=== PATIENT | female | born 1945 | race Caucasian/White ===

== ENCOUNTER → 2017-07-17 | Outpatient (CLI) | payer MEDICARE ==
[~2017-07-17] MED LIST: ASPI325T8 PO; ATOR40TA59 PO; CA C1TAB28 PO; CALC600T4 PO; CELE400C PO; CHOL200074 PO; FURO20TA3 PO; IBUP-1027 PO; METO25TA4 PO; OMEG1CAP43 PO; SPIR25TA PO; WARF-78 PO
--- NOTE | 2017-07-18 10:51 | RAD ---
APPROVED REPORT Test Type: Exercise Stress Nurse/Tech: Mera Walters R.N. Test Indications: palpitations, SOB, murmur Cardiac History: Family history, Hypertension, Diabetes, CAD, [place], Stents, former smoker Medications: See Electronic Medical Record Medical History: See Electronic Medical Record Resting ECG: NSR Resting Heart Rate: 68 bpm Resting Blood Pressure: 154/43mmHg Pretest Chest Pain: No chest pain Nurse/Tech Notes Murmur, lungs sound clear Consent: The procedure was explained to the patient in lay terms. Informed consent was witnessed. Ketan eout was entered into [employer]. History and Stress Test performed by Mera Walters R.N. Stress Symptoms pt became SOB after walking only 1 min. we had to decrease the rate so she could continue to walk. then she started havin PVC's after 1 min and couplets and triplets during 2nd min. POST EXERCISE Reason for Termination: Reached target heart rate Target HR: 126 Max HR: 162 bpm Exercise duration: 3 min min:sec, 1 Stage Max Blood Pressure: 233/71mmHg Blood Pressure response to exercise: Abnormal blood pressure response during stress. Chest Pain: No. Arrhythmia: Yes. douplets and triplets seen on the monitorduring last min of walking. also had a lot of PAC's ST Change: No. INTERPRETATION Stress EKG Conclusion: Baseline EKG showed sinus rhythm. No ischemic changes at peak stress. PAC's n oted without any other arrhythmias. Imaging Protocol IMAGE PROTOCOL: Rest Tc-99m/stress Tc-99m 2 days Rest: Stress: Viability: Radiopharm.Tc99m NkpmgbtvsNu64t Sestamibi Dose32.3mCi 33.4mCi Duration 15min. 15min. Img Date 07/17/2017 07/18/2017 Inj-Img [id number]. 60min. Rest Admin Site:IV - Left AntecubitalAdministrator:RT Janet (R)(N) Stress Admin Site: IV - Right AntecubitalAdministrator: RT Janet (R)(N) STRESS DATA End Diast. Vol.78.0mlAv. Heart Rate85.0bpm End Syst. Vol.11.0mlCO Index BSA0.0L/min Myocardial Qukm490.0gEject. Tubfmfnh35.0% Stress Rates Pk. Fill Rate3.37EDV/secLVtime Pk. Fill 96.51msec Pk. Empty Rate4.14ESV/secLVtime Pk. Bhcai386.77msec 1/3 Pk. Fill2.03EDV/sec Stress Scores Regional WT0.00Summed WT0.00 Regional WM0.00Summed WM0.00 Study quality was good. Left Ventricular size was Normal at Rest and Stress. Lung uptake was Normal. Left Ventricular ejection fraction is 86%. The rest and stress images show normal perfusion, normal contraction and thickening. LV Perf. Quant 17 Seg. SSS0.00 17 Seg. SRS1.00 17 Seg. SDS0.00 Stress Defect Extent (% LAD)2.50Rest Defect Extent (% LAD)9.40Rev. Defect Extent (% LAD)0.00 Stress Defect Extent (% LCX) 0.00Rest Defect Extent (% LCX)0.00Rev. Defect Extent (% LCX)0.00 Stress Defect Extent (% RCA)0.00Rest Defect Extent (% RCA)0.00Rev. Defect Extent (% RCA)0.00 Stress Defect Extent (% CONSUELO)0.90Rest Defect Extent (% CONSUELO)3.30Rev. Defect Extent (% CONSUELO)0.00 Conclusion 1. Treadmill exercise cardioisotope stress test did not show any evidence of ischemia or infarct. 2. Normal left ventricular systolic function with ejection fraction calculated at 86%. 3. Patient had poor activity tolerance. Low risk for cardiac events.
--- NOTE | 2017-07-18 10:57 | CARD ---
APPROVED REPORT EXAM: Two-dimensional and M-mode echocardiogram with Doppler and color Doppler. Other Information Quality : Good INDICATION Murmur Old Myocardial Infarction 2D DIMENSIONS RVDd2.1 (2.9-3.5cm)Left Atrium(2D)3.2 (1.6-4.0cm) IVSd1.2 (0.7-1.1cm)Aortic Root(2D)2.6 (2.0-3.7cm) LVDd4.5 (3.9-5.9cm)LVOT Diameter2.4 (1.8-2.4cm) PWd1.2 (0.7-1.1cm)LVDs2.8 (2.5-4.0cm) FS (%) 30.0 %SV63.5 ml LVEF(%)60.0 (>50%) Aortic Valve AoV Peak Baldev.161.4cm/sAoV VTI29.8cm AO Peak GR.10.4mmHgLVOT Peak Baldev.126.3cm/s AO Mean GR.6mmHgAVA (VMAX)3.50cm2 RADHIKA (VTI)3.80cm2 Mitral Valve MV E Qsiplamj45.0cm/sMV DECEL DYKR112vf MV A Btrwmyzn88.9cm/sE/A Ratio0.9 Pulmonary Vein S1 Bgbwxmls73.1cm/sD2 Vfrrjukf08.2cm/s LEFT VENTRICLE The left ventricle is normal size. There is mild concentric left ventricular hypertrophy. The left ve ntricular systolic function is normal. The Ejection Fraction is 55-60%. There is normal LV segmental wall motion. Transmitral Doppler flow pattern is Grade I-abnormal relaxation pattern. RIGHT VENTRICLE The right ventricle is normal size. The right ventricular systolic function is normal. ATRIA The left atrium size is normal. The right atrium size is normal. The interatrial septum is intact wit h no evidence for an atrial septal defect or patent foramen ovale as noted on 2-D or Doppler imaging. AORTIC VALVE The aortic valve is calcified but opens well. Doppler and Color Flow revealed no significant aortic r egurgitation. There is no significant aortic valvular stenosis. MITRAL VALVE The mitral valve is normal in structure and function. There is no evidence of mitral valve prolapse. There is no mitral valve stenosis. Doppler and Color-flow revealed trace mitral regurgitation. TRICUSPID VALVE The tricuspid valve is normal in structure and function. Doppler and Color Flow revealed no tricuspid valve regurgitation noted. There is no tricuspid valve stenosis. PULMONIC VALVE The pulmonary valve is normal in structure and function. Doppler and Color Flow revealed no pulmonic valvular regurgitation. There is no pulmonic valvular stenosis. GREAT VESSELS The aortic root is normal in size. The ascending aorta is normal in size. The IVC is normal in size a nd collapses >50% with inspiration. PERICARDIAL EFFUSION There is no evidence of significant pericardial effusion. Critical Notification Critical Value: No <Conclusion> The left ventricular systolic function is normal. The Ejection Fraction is 55-60%. There is normal LV segmental wall motion. Doppler and Color-flow revealed trace mitral regurgitation. There is no evidence of significant pericardial effusion.
== END | disposition home or self-care (01) ==
LOC: NM 07:46
PROVIDERS: ATTEND Internal Medicine Cardiovascular Disease
DX: I25.10 Atherosclerotic heart disease of native coronary artery without angina pectoris (principal); I25.2 Old myocardial infarction; I10 Essential (primary) hypertension; E11.9 Type 2 diabetes mellitus without complications; R01.1 Cardiac murmur, unspecified; R06.02 Shortness of breath; R00.2 Palpitations; Z87.891 Personal history of nicotine dependence
CPT/HCPCS: 78452; 96374; A9500; 93017; 93306; 96376

== ENCOUNTER 2020-05-19 14:13 | Emergency (ER) | payer MEDICARE ==
[~2020-05-19] VITALS: Ht 152.4 cm; Wt 90.0 kg
[~2020-05-19 14:13] MED LIST changes: -CALC600T4 PO; +CALC600T6 PO; -WARF-78 PO; +WARF5TAB2 PO
[2020-05-19] MEDS ORDERED: IBUPROFEN 200 MG TABLET. PO ONE (16:15)
--- NOTE | 2020-05-19 16:19 | PHYS DOC ---
Past Medical History Past Medical History: CAD, Diabetes-Type II, Hypertension, MS Past Surgical History: Hip Replacement, Knee Replacement Additional Past Surgical Histo: bilateral hip and knee replacements Smoking Status: Former Smoker Additional Information: quit smoking 30 years ago Alcohol Use: Rarely General Adult EDM: Chief Complaint: HIP PAIN HPI: HPI: Patient is a 75 year old female who presents with patient states in March she began having left hip pain and she states that it feels like the joint is popping out or clicking. She states that yesterday the pain became even worse and she had to use a walker because of it. She states she also started having sharp shooting pain on the lateral and back of the leg going from the hip. She states that she does have a general they have disc disease in her lower back. Patient's left hip was replaced 7 years ago. Patient rates her pain a 7 out of 10. She states she only with ibuprofen for pain. She has a history of bilateral hip and knee replacements, MS, hypertension, CAD, diabetes. Patient denies numbness or tingling, coolness of the extremities, skin color change, chest pain, shortness of air, fever, dysuria, abdominal pain, nausea, vomiting, diarrhea. She states the pain is worse when she is up and putting pressure on the extremity. No extremity edema. Review of Systems: Review of Systems: Constitutional: Denies fever or chills. [] Eyes: Denies change in visual acuity. [] HENT: Denies nasal congestion or sore throat. [] Respiratory: Denies cough or shortness of breath. [] Cardiovascular: Denies chest pain or edema. [] GI: Denies abdominal pain, nausea, vomiting, bloody stools or diarrhea. [] : Denies dysuria. [] Musculoskeletal: Denies back pain. Left hip sharp shooting lateral pains joint pain. [] Integument: Denies rash. [] Neurologic: Denies headache, focal weakness or sensory changes. [] Endocrine: Denies polyuria or polydipsia. [] Lymphatic: Denies swollen glands. [] Psychiatric: Denies depression or anxiety. [] Heart Score: Risk Factors: Risk Factors: DM, Current or recent (<one month) smoker, HTN, HLP, family history of CAD, obesity. Risk Scores: Score 0 - 3: 2.5% MACE over next 6 weeks - Discharge Home Score 4 - 6: 20.3% MACE over next 6 weeks - Admit for Clinical Observation Score 7 - 10: 72.7% MACE over next 6 weeks - Early Invasive Strategies Current Medications: Current Medications Medications (Trade) Dose Ordered Sig/Leonel Start Time Stop Time Status Last Admin Dose Admin Ibuprofen (Motrin) 600 mg 1X ONCE 05/19/20 16:15 05/19/20 16:16 UNV Allergies: Allergies: Allergies Coded Allergies Type Severity Reaction Last Updated Verified No Known Drug Allergies 05/19/20 No Physical Exam: PE: Constitutional: Well developed, well nourished, no acute distress, non-toxic appearance. [] HENT: Normocephalic, atraumatic, bilateral external ears normal, oropharynx moist, no oral exudates, nose normal. [] Eyes: PERRLA, EOMI, conjunctiva normal, no discharge. [] Neck: Normal range of motion, no tenderness, supple, no stridor. [] Cardiovascular:Heart rate regular rhythm, no murmur [] Lungs & Thorax: Bilateral breath sounds clear to auscultation [] Abdomen: Bowel sounds normal, soft, no tenderness, no masses, no pulsatile masses. [] Skin: Warm, dry, no erythema, no rash. [] Back: No tenderness, no CVA tenderness. [] Extremities: No tenderness, no cyanosis, no clubbing, left hip ROM intact but painful, no edema. [] Neurologic: Alert and oriented X 3, normal motor function, normal sensory function, no focal deficits noted. [] Psychologic: Affect normal, judgement normal, mood normal. [] Current Patient Data: Vital Signs: Vital Signs Date Time Temp Pulse Resp B/P (MAP) Pulse Ox O2 Delivery O2 Flow Rate FiO2 05/19/20 15:00 98.8 86 20 203/81 (121) 98 Room Air 98.8 EKG: EKG: [] Radiology/Procedures: Radiology/Procedures: [] Impression: [facility] [address] [place] [address] IMAGING REPORT Signed PATIENT: ARI TILLMAN EACCOUNT: [id number] : 1945 LOCATION: ER AGE: 75 SEX: F EXAM STATUS: PRE ER ORD. PHYSICIAN: TIFFANIE SALDAÑA APRN REASON: Hip pain, 14 PROCEDURE: HIP LEFT 2V WITH PELVIS HIP LEFT 2V WITH PELVIS History: Reason: Hip pain, 14 / Spl. Instructions: / History: Technique: AP view the pelvis and 2 additional views of the left hip. Comparison: September 20, 2013. Findings: Left total hip arthroplasty with superior dislocation of the femoral head component compared to the acetabulum. Right total hip arthroplasty. Advanced lower lumbar spondylosis. No fracture. Heterotopic ossification adjacent to the left hip. Vascular calcifications. Impression: 1. Left total hip arthroplasty with superior dislocation. 2. Right total hip arthroplasty. 3. Advanced lower lumbar spondylosis. Electronically signed by: Lucas Elliott DO (05/19/2020 5:05 PM) [id number] DICTATED and SIGNED BY: LUCAS ELLIOTT DO DATE: 05/19/20 170 Course & Med Decision Making: Course & Med Decision Making Pertinent Labs and Imaging studies reviewed. (See chart for details) See HPI. No saddle paresthesia. Tenderness to the hip of the leg with palpation. Patient denies loss of bowel or bladder. Patient is able to bend at the hip joint and there is no laxity of the joint and there is no deformity of the joints seen or felt. Patient denies falling or injury. It was painful for her to bend at the joint and she states that she felt a pop. Skin is pink warm and dry. Spoken to Dr. Vargas concerning the findings. He states that he does not do revisions especially since this is not his primary work. He states that the patient needs to go back to the doctor that did the surgery or she can go to to a Dr Carney or a Dr Sindy Hazel at [facility]. I have spoken to the patient about this and she will be referred to at or the one at [facility] and the patient will choose which when she was go to. She states that the doctors that revision her hips are in [place]. I have also spoke to Dr. Echeverria about this patient concerning the care plan. The patient only wants to use ibuprofen for her pain control. [] Ibrahimaon Disclaimer: Dragon Disclaimer: This electronic medical record was generated, in whole or in part, using a voice recognition dictation system. Departure Departure Impression: Primary Impression: Hip dislocation, left Qualified Codes: S73.005A - Unspecified dislocation of left hip, initial encounter Disposition: HOME, SELF-CARE Condition: STABLE Referrals: KATIE BOSE DO (PCP) Patient Instructions: Hip Dislocation, [id number] Additional Instructions: Follow up with either orthopedics or [facility] orthopedics as soon as possible. Continue to use your walker. Justicifation of Admission Dx: Justifications for Admission: Justification of Admission Dx: N/A TIFFANIE SALDAÑA MARKET RESEARCH ASSISTANT May 19, 2020 16:18
--- NOTE | 2020-05-19 17:08 | RAD ---
HIP LEFT 2V WITH PELVIS History: Reason: Hip pain, 14 / Spl. Instructions: / History: Technique: AP view the pelvis and 2 additional views of the left hip. Comparison: September 20, 2013. Findings: Left total hip arthroplasty with superior dislocation of the femoral head component compared to the acetabulum. Right total hip arthroplasty. Advanced lower lumbar spondylosis. No fracture. Heterotopic ossification adjacent to the left hip. Vascular calcifications. Impression: 1. Left total hip arthroplasty with superior dislocation. 2. Right total hip arthroplasty. 3. Advanced lower lumbar spondylosis. Electronically signed by: Lucas Elliott DO (05/19/2020 5:05 PM) [id number]
[2020-05-19 18:00] VITALS: BP 167/91
== END 2020-05-19 18:00 | disposition home or self-care (01) ==
LOC: ER 14:13
DX: S73.005A Unspecified dislocation of left hip, initial encounter (principal); I11.9 Hypertensive heart disease without heart failure; E11.9 Type 2 diabetes mellitus without complications; I25.2 Old myocardial infarction; Z87.891 Personal history of nicotine dependence; Z98.890 Other specified postprocedural states; X58.XXXA Exposure to other specified factors, initial encounter; Y93.89 Activity, other specified; Y92.89 Other specified places as the place of occurrence of the external cause; Y99.8 Other external cause status
CPT/HCPCS: 73502; 99284